=== PATIENT | male | born 2000 | race Caucasian/White ===

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

== ENCOUNTER 2020-08-22 21:05 | Emergency (ER) | payer OTHER ==
[~2020-08-22] VITALS: Ht 187.9 cm; Wt 76.2 kg
[~2020-08-22 21:05] MED LIST changes: +RT-ALBUINH IH
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
[2020-08-22] MEDS ORDERED: KETOROLAC 30 MG/ML VIAL IVP ONE (22:30)
[2020-08-22 22:39] LABS: BILIRUBIN,URINE NEGATIVE (NEGATIVE); CLARITY,URINE SL CLOUDY; COLOR,URINE YELLOW; GLUCOSE, URINE (UA) NEGATIVE (NEGATIVE); KETONES,URINE NEGATIVE (NEGATIVE); LEUKOCYTE ESTERASE ,URINE NEGATIVE (NEGATIVE); NITRITE,URINE NEGATIVE (NEGATIVE); PH,URINE 6.5 (5-9); PROTEIN,URINE NEGATIVE (NEGATIVE)
[2020-08-22 22:41] LABS: BACTERIA,URINE NEGATIVE /HPF; SQUAMOUS EPITHELIAL CELL,UR >50 /HPF
[2020-08-22 22:48] LABS: BASOPHILS # (AUTO) 0.1 10^3/uL (0.0-0.1); BASOPHILS % (AUTO) 1 % (0-10); EOSINOPHILS # (AUTO) 0.2 10^3/uL (0.0-0.3); EOSINOPHILS % (AUTO) 3 % (0-10); HEMATOCRIT 43 % (40-54); HEMOGLOBIN 14.2 g/dL (13.3-17.7); LYMPHOCYTES # (AUTO) 1.8 10^3/uL (1.0-4.0); LYMPHOCYTES % (AUTO) 30 % (12-44); MEAN CORPUSCULAR HEMOGLOBIN 30 pg (25-34); MEAN CORPUSCULAR HGB CONC 33 g/dL (32-36); MEAN CORPUSCULAR VOLUME 89 fL (80-99); MONOCYTES # (AUTO) 0.8 10^3/uL (0.0-1.0); MONOCYTES % (AUTO) 12 % (0-12); NEUTROPHILS # (AUTO) 3.3 10^3/uL (1.8-7.8); NEUTROPHILS % (AUTO) 54 % (42-75); PLATELET COUNT 239 10^3/uL (130-400); WHITE BLOOD COUNT 6.1 10^3/uL (4.3-11.0)
[2020-08-22 23:01] LABS: CHLORIDE 104 MMOL/L (98-107); POTASSIUM 3.9 MMOL/L (3.6-5.0); SODIUM 140 MMOL/L (135-145)
[2020-08-22 23:02] LABS: CALCIUM 8.9 MG/DL (8.5-10.1)
[2020-08-22 23:03] LABS: GLUCOSE 84 MG/DL (70-105)
[2020-08-22 23:04] LABS: CARBON DIOXIDE 25 MMOL/L (21-32)
[2020-08-22 23:06] LABS: CREATININE SERUM 0.87 MG/DL (0.60-1.30); GFR ESTIMATED > 60
[2020-08-22 23:07] LABS: BUN/CREATININE RATIO 14
[2020-08-22] MEDS ORDERED: RX-ONDANSETRON 4 MG ODT (ZOFRAN) PPK #4 PO STA (23:53)
[2020-08-23 00:05] VITALS: BP 122/69
--- NOTE | 2020-08-23 07:11 | Diagnostic Imaging Report ---
PROCEDURE: CT urinary tract, rule out kidney stone. TECHNIQUE: Multiple contiguous axial images were obtained through the abdomen and pelvis without the use of intravenous contrast. Auto Exposure Controls were utilized during the CT exam to meet ALARA standards for radiation dose reduction. INDICATION: Left flank pain CORRELATION STUDY: None. FINDINGS: LOWER THORAX: Clear. LIVER: Unremarkable. GALLBLADDER: Present and unremarkable. No bile duct dilatation. SPLEEN: Unremarkable. PANCREAS: Unremarkable. ADRENAL GLANDS: Unremarkable. KIDNEYS: Tiny nonobstructing right renal stone. No definitive ureteral stone or obstructive uropathy. ABDOMINAL AORTA: Unremarkable, nonaneurysmal. GASTROINTESTINAL TRACT: No obstruction or inflammation. No findings to suggest acute appendicitis. URINARY BLADDER: Unremarkable. REPRODUCTIVE: Unremarkable. OSSEOUS STRUCTURES: No acute abnormality. OTHER: None. IMPRESSION: 1. Tiny right renal stone. No definitive ureteral stone or obstructive uropathy. Initial report was provided by Bhavesh. Dictated by: Dictated on workstation # [id number]
== END 2020-08-23 00:12 | disposition home or self-care (01) ==
LOC: EDUNIT# 21:05 → ER 21:07
DX: R10.32 Left lower quadrant pain (principal); J45.909 Unspecified asthma, uncomplicated; Z88.5 Allergy status to narcotic agent
CPT/HCPCS: 36415; 74176; 80048; 81000; 85025

== ENCOUNTER 2023-02-02 17:32 | Emergency (ER) | payer OTHER ==
[~2023-02-02] VITALS: Ht 188 cm; Wt 81.6 kg
[~2023-02-02 17:32] MED LIST changes: +ALBU8.5H6 IH; -RT-ALBUINH IH
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
[2023-02-02] MEDS ORDERED: KETOROLAC INJ 30 MG/ML VIAL IM ONE (18:00)
[2023-02-02] MEDS ORDERED: ORPHENADRINE 60 MG/2 ML AMP (ED ONLY) IM ONE (18:00)
[2023-02-02] MEDS ORDERED: dexAMETHasone INJ 10 MG/ML 1 ML VIAL IM ONE (18:00)
[2023-02-02] MEDS ORDERED: LIDOCAINE 4% PATCH TOP SCH (18:15)
--- NOTE | 2023-02-02 18:38 | Diagnostic Imaging Report ---
PROCEDURE: CT lumbar spine without contrast. TECHNIQUE: Multiple contiguous axial images were obtained through the lumbar spine without the use of intravenous contrast. Sagittal and coronal reformations were then performed. Auto Exposure Controls were utilized during the CT exam to meet ALARA standards for radiation dose reduction. INDICATION: Back pain, trauma. COMPARISON: None. FINDINGS: The lumbar spine alignment is maintained. Normal facet joints. Mild multilevel disc height loss. No acute fracture or dislocation of the lumbar spine. No lytic or sclerotic bone lesions. Moderate spinal canal narrowing at L5-S1 and mild spinal canal narrowing at L4-L5 due to disc bulge. No significant neuroforaminal stenosis. Included views of the abdomen demonstrate a nonobstructing right renal calculi. IMPRESSION: No acute fracture dislocation of the lumbar spine. Moderate spinal canal stenosis at L5-S1 due to disc bulge. Small nonobstructing right renal calculi within the visualized portions of the right kidney. Dictated by: Dictated on workstation # [id number]
[2023-02-02] MEDS ORDERED: ACHD5005 PO (19:44)
[2023-02-02] MEDS ORDERED: CYCL10TA25 PO (19:44)
[2023-02-02 19:50] VITALS: BP 117/65
[2023-02-03] MEDS ORDERED: LIDOCAINE 4% PATCH TOP SCH (09:00)
== END 2023-02-02 19:50 | disposition home or self-care (01) ==
LOC: EDUNIT# 17:32 → ER 17:35
DX: M51.36 Other intervertebral disc degeneration, lumbar region (principal); M48.061 Spinal stenosis, lumbar region without neurogenic claudication; N20.0 Calculus of kidney; Z88.5 Allergy status to narcotic agent; V84.9XXA Unspecified occupant of special agricultural vehicle injured in nontraffic accident, initial encounter
CPT/HCPCS: 72131